=== PATIENT | male | born 1975 | race Caucasian/White ===

== ENCOUNTER 2018-03-15 02:07 | Emergency (ER) | payer MEDICAID, OTHER ==
[~2018-03-15] VITALS: Ht 188 cm; Wt 118.0 kg
[2018-03-15] MEDS ORDERED: ACETAMINOPHEN 325MG TABLET PO ONE (02:45)
[2018-03-15] MEDS ORDERED: LIDOCAINE HCL 1% 20ML VIAL (Pyxis) INJ INFIL ONE (02:45)
[2018-03-15] MEDS ORDERED: LIDOCAINE HCL/PF 1% 10 MG/ML 5ML VIAL IJ NR (03:15)
[2018-03-15 03:48] VITALS: BP 154/90
== END 2018-03-15 05:05 | disposition home or self-care (01) ==
LOC: ER 02:07
DX: S41.111A Laceration without foreign body of right upper arm, initial encounter (principal); I10 Essential (primary) hypertension; F17.200 Nicotine dependence, unspecified, uncomplicated; F10.10 Alcohol abuse, uncomplicated; Y90.9 Presence of alcohol in blood, level not specified; X99.8XXA Assault by other sharp object, initial encounter; Y93.89 Activity, other specified; Y92.59 Other trade areas as the place of occurrence of the external cause
CPT/HCPCS: 12006; 99284; J3490; Z7610

== ENCOUNTER 2018-10-27 16:37 | Inpatient (IN) | payer MEDICAID ==
[2018-10-27] VITALS (12 sets, daily range): BP systolic 134–160; BP diastolic 73–104
[~2018-10-27] VITALS: Ht 188 cm; Wt 127.0 kg
[2018-10-27] MEDS ORDERED: ONDANSETRON HCL 4MG/2ML INJ IV STA (17:12)
[2018-10-27] MEDS ORDERED: MORPHINE SULFATE 4 MG/ML CPJ (NOT FOR IM USE) IV STA (17:12)
[2018-10-27] MEDS ORDERED: LORAZEPAM 2MG/ML CPJ IV ONE ×2 (18:15→19:21)
[2018-10-27] MEDS ORDERED: HYDRALAZINE 20MG/ML VIAL IV ONE (18:15)
[2018-10-27 18:20] LABS: BASOPHILS % 0.7 % (0.0-2.0); EOSINOPHILS % 0.7 % (0.0-5.0); HEMATOCRIT. 38.3 % (42.0-52.0); HEMOGLOBIN. 13.1 g/dL (14.0-18.0); LYMPHOCYTES % 11.8 % (20.0-50.0); MEAN CORPUSCULAR HEMOGLOBIN 34.8 pg (28.0-32.0); MEAN CORPUSCULAR VOLUME 101.6 fL (80.0-94.0); MEAN PLATELET VOLUME 8.6 fl (7.4-10.4); NEUTROPHILS % 73.8 % (40.0-76.0); PLATELET 56 x1000/uL (130-400); RED BLOOD CELL COUNT 3.77 mill/uL (4.7-6.1); RED CELL DISTRIBUTION WIDTH 14.3 % (11.6-14.6)
[2018-10-27 18:25] LABS: CHLORIDE 110 mEq/L (98-107)
[2018-10-27 18:36] LABS: ETHANOL BLOOD 297 mg/dL
[2018-10-27] MEDS ORDERED: LEVETIRACETAM 1000MG/100ML 100 ML IV ONE (19:15)
[2018-10-27] MEDS ORDERED: DEXAMETHASONE 4MG TABLET PO ONE (19:15)
[2018-10-27] MEDS ORDERED: NICARDIPINE 40MG/200ML PREMIX 200 ML IV PRN (19:15)
[2018-10-27] MEDS ORDERED: ONDANSETRON HCL 4MG/2ML INJ IV PRN (20:00)
[2018-10-27] MEDS: DEXT 5%/LACTATED RINGERS 1,000 ML IV SCH (21:45)
[2018-10-27] MEDS: MORPHINE SULFATE 2 MG/ML CPJ (NOT FOR IM USE) IV PRN (22:29)
[2018-10-27] MEDS: NICARDIPINE 100 MG in SODIUM CHLORIDE 0.9% 60 ML IV PRN (23:46)
[2018-10-28] VITALS (101 sets, daily range): BP systolic 90–176; BP diastolic 26–108
[2018-10-28] MEDS: DEXAMETHASONE 4MG/ML 1ML VIAL IV SCH ×4 (01:48→21:19)
[2018-10-28] MEDS: MORPHINE SULFATE 2 MG/ML CPJ (NOT FOR IM USE) IV PRN ×7 (02:29→21:20)
[2018-10-28 04:08] LABS: CLARITY URINE CLEAR (CLEAR); COLOR URINE DARK YELLOW (YELLOW); KETONES URINE NEGATIVE (NEGATIVE); LEUKOCYTE ESTERASE URINE NEGATIVE (NEGATIVE); NITRITE URINE NEGATIVE (NEGATIVE); OCCULT BLOOD URINE NEGATIVE (NEGATIVE); PROTEIN URINE NEGATIVE (NEGATIVE); SPECIFIC GRAVITY URINE 1.014 (1.005-1.030)
[2018-10-28 04:24] LABS: *AMPHETAMINES SCREEN URINE NEGATIVE (NEGATIVE); *BARBITURATES SCREEN URINE NEGATIVE (NEGATIVE); *BENZODIAZEPINES SCREEN URINE NEGATIVE (NEGATIVE); *COCAINE SCREEN URINE NEGATIVE (NEGATIVE)
[2018-10-28 04:25] LABS: CANNABINOID URINE SCREEN NEGATIVE (NEGATIVE); METHADONE URINE SCREEN NEGATIVE (NEGATIVE); OPIATES URINE SCREEN PRESUMTIVE POSITIVE (NEGATIVE); PHENCYCLIDINE URINE SCREEN NEGATIVE (NEGATIVE)
[2018-10-28 05:46] LABS: HEMATOCRIT. 38.4 % (42.0-52.0); HEMOGLOBIN. 12.9 g/dL (14.0-18.0); MEAN CORPUSCULAR HEMOGLOBIN 34.7 pg (28.0-32.0); MEAN CORPUSCULAR VOLUME 103.1 fL (80.0-94.0); MEAN PLATELET VOLUME 9.3 fl (7.4-10.4); PLATELET 58 x1000/uL (130-400); RED BLOOD CELL COUNT 3.73 mill/uL (4.7-6.1); RED CELL DISTRIBUTION WIDTH 14.4 % (11.6-14.6)
[2018-10-28 06:51] LABS: CHLORIDE 110 mEq/L (98-107)
[2018-10-28 07:22] LABS: LDL CHOLESTEROL 108 mg/dL (5-100)
[2018-10-28 07:24] LABS: HDL CHOLESTEROL 43 mg/dL (40-59)
[2018-10-28 07:54] LABS: PLATELET ESTIMATE MARKEDLY DECREASED
[2018-10-28] MEDS ORDERED: CHLORDIAZEPOXIDE 5 MG CAPSULE PO NR (08:30)
[2018-10-28] MEDS: NICARDIPINE 100 MG in SODIUM CHLORIDE 0.9% 60 ML IV PRN ×3 (08:33→21:22)
[2018-10-28] MEDS ORDERED: HYDRALAZINE HCL 50MG TABLET PO NR (08:45)
[2018-10-28] MEDS ORDERED: LEVETIRACETAM 500 MG in SODIUM CHLORIDE 0.9% 100 ML IV SCH (09:00)
[2018-10-28] MEDS ORDERED: ALPRAZOLAM 0.5 MG TABLET PO PRN (09:15)
[2018-10-28] MEDS ORDERED: ALPRAZOLAM 0.5 MG TABLET PO NR (09:15)
[2018-10-28] MEDS: FAMOTIDINE 20MG/2ML VIAL IV SCH (09:56)
[2018-10-28] MEDS ORDERED: [UNRECOGNIZED DRUG - REMARK] IV SCH ×4 (10:00)
[2018-10-28] MEDS: HYDRALAZINE HCL 50MG TABLET PO SCH ×2 (13:44→21:17)
[2018-10-28] MEDS ORDERED: CHLORDIAZEPOXIDE 5 MG CAPSULE PO SCH (14:00)
[2018-10-28] MEDS: DEXT 5%/LACTATED RINGERS 1,000 ML IV SCH (14:25)
[2018-10-28] MEDS: THIAMINE HCL 100MG TABLET PO SCH (16:45)
[2018-10-28] MEDS ORDERED: THIAMINE HCL 100MG TABLET PO SCH (16:45)
[2018-10-28 16:54] LABS: CREATINE KINASE 74 IU/L (39-308)
[2018-10-28 16:55] LABS: CREATINE KINASE MB FRACTION < 1.0 ng/mL (0.5-3.6)
[2018-10-28 16:56] LABS: T4 FREE 1.18 ng/dL (0.76-1.46)
[2018-10-28] MEDS ORDERED: METOPROLOL TARTRATE 50MG TABLET PO NR (17:00)
[2018-10-28] MEDS ORDERED: LEVETIRACETAM 500MG TABLET PO SCH (21:00)
[2018-10-28] MEDS: ALPRAZOLAM 0.5 MG TABLET PO SCH (21:17)
[2018-10-28] MEDS: METOPROLOL TARTRATE 50MG TABLET PO SCH (21:18)
[2018-10-28] MEDS: LEVETIRACETAM 500MG TABLET PO SCH (21:18)
[2018-10-28 23:26] LABS: CREATINE KINASE 79 IU/L (39-308)
[2018-10-28 23:28] LABS: CREATINE KINASE MB FRACTION < 1.0 ng/mL (0.5-3.6)
[2018-10-29] VITALS (96 sets, daily range): BP systolic 87–181; BP diastolic 16–131
[2018-10-29] MEDS: NICARDIPINE 100 MG in SODIUM CHLORIDE 0.9% 60 ML IV PRN ×2 (04:44→14:08)
[2018-10-29] MEDS: DEXT 5%/LACTATED RINGERS 1,000 ML IV SCH ×2 (04:44→22:30)
[2018-10-29] MEDS: DEXAMETHASONE 4MG/ML 1ML VIAL IV SCH ×3 (06:08→21:52)
[2018-10-29] MEDS: METOPROLOL TARTRATE 50MG TABLET PO SCH ×3 (06:09→21:52)
[2018-10-29] MEDS: HYDRALAZINE HCL 50MG TABLET PO SCH (06:10)
[2018-10-29 06:19] LABS: CREATINE KINASE 80 IU/L (39-308)
[2018-10-29 06:20] LABS: CREATINE KINASE MB FRACTION < 1.0 ng/mL (0.5-3.6)
[2018-10-29 10:01] LABS: HEMATOCRIT. 35.1 % (42.0-52.0); HEMOGLOBIN. 11.8 g/dL (14.0-18.0); MEAN CORPUSCULAR HEMOGLOBIN 34.7 pg (28.0-32.0); MEAN CORPUSCULAR VOLUME 103.7 fL (80.0-94.0); MEAN PLATELET VOLUME 9.4 fl (7.4-10.4); PLATELET 61 x1000/uL (130-400); RED BLOOD CELL COUNT 3.39 mill/uL (4.7-6.1); RED CELL DISTRIBUTION WIDTH 14.1 % (11.6-14.6)
[2018-10-29 10:12] LABS: CHLORIDE 106 mEq/L (98-107)
[2018-10-29] MEDS ORDERED: LIDOCAINE HCL 1% 20ML VIAL (Pyxis) INJ ONE (10:36)
[2018-10-29] MEDS: THIAMINE HCL 100MG TABLET PO SCH (10:41)
[2018-10-29] MEDS: ALPRAZOLAM 0.5 MG TABLET PO SCH ×2 (10:41→21:02)
[2018-10-29] MEDS: LEVETIRACETAM 500MG TABLET PO SCH ×2 (10:41→21:02)
[2018-10-29] MEDS: FAMOTIDINE 20MG/2ML VIAL IV SCH (10:42)
[2018-10-29] MEDS: MORPHINE SULFATE 2 MG/ML CPJ (NOT FOR IM USE) IV PRN ×4 (10:55→21:04)
[2018-10-29] MEDS: HYDRALAZINE HCL 25MG TABLET PO SCH ×2 (15:37→21:52)
[2018-10-30] VITALS (53 sets, daily range): BP systolic 92–175; BP diastolic 57–112
[2018-10-30] MEDS: MORPHINE SULFATE 2 MG/ML CPJ (NOT FOR IM USE) IV PRN ×4 (00:04→21:06)
[2018-10-30] MEDS: NICARDIPINE 100 MG in SODIUM CHLORIDE 0.9% 60 ML IV PRN (00:09)
[2018-10-30] MEDS: DEXAMETHASONE 4MG/ML 1ML VIAL IV SCH ×3 (05:26→21:05)
[2018-10-30] MEDS: HYDRALAZINE HCL 25MG TABLET PO SCH ×3 (05:26→21:06)
[2018-10-30] MEDS: METOPROLOL TARTRATE 50MG TABLET PO SCH ×3 (05:27→21:06)
[2018-10-30] MEDS: ALPRAZOLAM 0.5 MG TABLET PO SCH ×2 (08:39→21:05)
[2018-10-30] MEDS: LEVETIRACETAM 500MG TABLET PO SCH ×2 (08:39→21:05)
[2018-10-30] MEDS: THIAMINE HCL 100MG TABLET PO SCH (08:39)
[2018-10-30] MEDS: FAMOTIDINE 20MG/2ML VIAL IV SCH (08:39)
[2018-10-30] MEDS: CHLORDIAZEPOXIDE 5 MG CAPSULE PO SCH ×2 (17:19→21:06)
[2018-10-30 17:47] LABS: PLATELET ESTIMATE MARKEDLY DECREASED
[2018-10-31] VITALS: BP 130/80
[2018-10-31 04:00] VITALS: BP 118/66
[2018-10-31] MEDS: CHLORDIAZEPOXIDE 25MG CAPSULE PO SCH ×3 (06:40→21:10)
[2018-10-31] MEDS: HYDRALAZINE HCL 25MG TABLET PO SCH ×3 (06:40→21:09)
[2018-10-31] MEDS: METOPROLOL TARTRATE 50MG TABLET PO SCH ×3 (06:40→21:09)
[2018-10-31 08:00] VITALS: BP 129/91
[2018-10-31] MEDS: LEVETIRACETAM 500MG TABLET PO SCH ×2 (10:11→21:10)
[2018-10-31] MEDS: FAMOTIDINE 20MG/2ML VIAL IV SCH (10:11)
[2018-10-31] MEDS: THIAMINE HCL 100MG TABLET PO SCH (10:11)
[2018-10-31] MEDS: ALPRAZOLAM 0.5 MG TABLET PO SCH ×2 (10:12→21:09)
[2018-10-31] MEDS: MORPHINE SULFATE 2 MG/ML CPJ (NOT FOR IM USE) IV PRN (10:17)
[2018-10-31 12:00] VITALS: BP 117/78
[2018-10-31 16:00] VITALS: BP 132/91
[2018-10-31] MEDS: HYDROCODONE/ACETAMINOPHEN 10/325MG TABLET PO PRN ×2 (16:51→21:09)
[2018-10-31 20:00] VITALS: BP 136/101
[2018-11-01] VITALS: BP 143/95
[2018-11-01 04:00] VITALS: BP 133/91
[2018-11-01 06:25] LABS: BASOPHILS % 0.1 % (0.0-2.0); EOSINOPHILS % 0.1 % (0.0-5.0); HEMATOCRIT. 34.9 % (42.0-52.0); HEMOGLOBIN. 12.1 g/dL (14.0-18.0); LYMPHOCYTES % 7.5 % (20.0-50.0); MEAN CORPUSCULAR HEMOGLOBIN 35.3 pg (28.0-32.0); MEAN CORPUSCULAR VOLUME 101.9 fL (80.0-94.0); MEAN PLATELET VOLUME 9.8 fl (7.4-10.4); MONOCYTES % 14.4 % (2.0-8.0); NEUTROPHILS % 77.9 % (40.0-76.0); PLATELET 58 x1000/uL (130-400); RED BLOOD CELL COUNT 3.42 mill/uL (4.7-6.1); RED CELL DISTRIBUTION WIDTH 13.9 % (11.6-14.6)
[2018-11-01] MEDS: METOPROLOL TARTRATE 50MG TABLET PO SCH ×2 (06:29→13:34)
[2018-11-01] MEDS: HYDRALAZINE HCL 25MG TABLET PO SCH ×2 (06:29→13:34)
[2018-11-01] MEDS: CHLORDIAZEPOXIDE 25MG CAPSULE PO SCH ×2 (06:30→13:35)
[2018-11-01 08:00] VITALS: BP 130/85
[2018-11-01] MEDS: ALPRAZOLAM 0.5 MG TABLET PO SCH (09:14)
[2018-11-01] MEDS: FAMOTIDINE 20MG/2ML VIAL IV SCH (09:14)
[2018-11-01] MEDS: THIAMINE HCL 100MG TABLET PO SCH (09:14)
[2018-11-01] MEDS: LEVETIRACETAM 500MG TABLET PO SCH (09:14)
[2018-11-01 12:00] VITALS: BP 129/80
[2018-11-01 16:20] VITALS: BP 129/80
== END 2018-11-01 16:50 | disposition home health service (06) | DRG 44 ==
LOC: ER 16:46 → MICUSO 19:19 → EDBEDREQ 19:24 → EDBEDREQSVC 19:24 → ENRESERV 20:05 → 5WST 10-30 13:32
PROVIDERS: ADMIT Family Medicine; ATTEND Family Medicine
PROC: 02HV33Z Insertion of Infusion Device into Superior Vena Cava, Percutaneous Approach (ICD-10-PCS; principal; 2018-10-29)
PROC: B54MZZA Ultrasonography of Right Upper Extremity Veins, Guidance (ICD-10-PCS; 2018-10-29)
DX: I61.0 Nontraumatic intracerebral hemorrhage in hemisphere, subcortical (principal); J96.01 Acute respiratory failure with hypoxia; F10.231 Alcohol dependence with withdrawal delirium; D69.6 Thrombocytopenia, unspecified; E66.01 Morbid (severe) obesity due to excess calories; G81.94 Hemiplegia, unspecified affecting left nondominant side; I16.1 Hypertensive emergency; R74.0 Nonspecific elevation of levels of transaminase and lactic acid dehydrogenase [LDH]; Z68.34 Body mass index [BMI] 34.0-34.9, adult; K70.30 Alcoholic cirrhosis of liver without ascites; K70.10 Alcoholic hepatitis without ascites; K29.70 Gastritis, unspecified, without bleeding; F32.9 Major depressive disorder, single episode, unspecified; F17.210 Nicotine dependence, cigarettes, uncomplicated; F41.9 Anxiety disorder, unspecified; I10 Essential (primary) hypertension; Y90.8 Blood alcohol level of 240 mg/100 ml or more; Z82.49 Family history of ischemic heart disease and other diseases of the circulatory system; Z91.14 Patient's other noncompliance with medication regimen; Z91.19 Patient's noncompliance with other medical treatment and regimen
CPT/HCPCS: 36415; 36569; 71045; 73502; 74022; 76937; 80061; 80305; 80320; 82550; 82553; 82962; 83036; 83880; 84439; 84443; 84484; 85379; 93005; 93306; 96365; 96375; 97110; 97116; 97162; 97166; 97530; 99291; C1725; J0360; J1100; J1953; J2060; J2270; J2405; J3411; J3490; J7050; J7121; J8540; G0480